=== PATIENT | male | born 1970 | race Caucasian/White ===

== ENCOUNTER 2020-04-05 06:25 | Emergency (ER) | payer MEDICAID ==
[~2020-04-05] VITALS: Ht 180.3 cm; Wt 151.0 kg
--- NOTE | 2020-04-05 06:31 | NUR ---
Patient to ER bed 6 to gown for evaluation. Side rails up.
[2020-04-05 06:32] VITALS: BP_SYST 106
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
--- NOTE | 2020-04-05 06:40 | NUR ---
ER Dr. Barcenas at bedside examining patient.
[2020-04-05] MEDS ORDERED: NACL 0.9% 1,000 ML IV ONE (06:44)
--- NOTE | 2020-04-05 06:59 | NUR ---
# 20 gauge angiocath placed to right hand. Use of asceptic technique. Opsite placed over site. Blood return noted. Blood for lab drawn from site. Flushed with 10 cc of normal saline. No evidence of infiltration noted. Patient tolerated well.
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
--- NOTE | 2020-04-05 07:18 | NUR ---
Patient Awake and cooperative with Eryn HUGHES for urine catheter placement. procedure unsuccessful, urine not ubtained. PT states he will provide urine via urinal.
--- NOTE | 2020-04-05 07:19 | NUR ---
REPORT GIVEN TO ELLEN KIRKLAND FOR CONTINUATION OF CARE.
--- NOTE | 2020-04-05 07:20 | NUR ---
RADIOLOGY STAFF, MIRANDA & DARREN AT BEDSIDE, MIRANDA STATES IT IS UNSAFE TO TAKE PT TO CT.
--- NOTE | 2020-04-05 07:38 | NUR ---
SPOKE WITH DARREN IN RADIOLOGY, REFUSING TO TAKE PT TO RADIOLOGY. DR ORONA AWARE
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
--- NOTE | 2020-04-05 07:56 | NUR ---
PT to radiology with staff via [facility].
[2020-04-05 08:02] LABS: BASOPHILS % (AUTO) 0.5 % (0.0-2.0); EOSINOPHILS # (AUTO) 0.1 K/uL (0.0-0.4); HEMATOCRIT 35.2 % (36-54); HEMOGLOBIN 11.9 g/dL (14.0-18.0); LYMPHOCYTES # (AUTO) 1.4 K/uL (1.0-5.5); LYMPHOCYTES % (AUTO) 17.9 % (20.5-51.5); MEAN CORPUSCULAR HEMOGLOBIN 30 pg (27-31); MEAN CORPUSCULAR HGB CONC 34 % (32-36); MEAN CORPUSCULAR VOLUME 88 fL (79.0-98.0); MONOCYTES # (AUTO) 0.6 K/uL (0.0-1.0); MONOCYTES % (AUTO) 7.6 % (1.7-9.3); NEUTROPHILS # (AUTO) 5.8 K/uL (1.8-7.7); PLATELET COUNT (AUTO) 256 K/uL (130-430); RED BLOOD CELL COUNT(AUTO) 4.02 MIL/uL (4.2-6.2); RED CELL DISTRIBUTION WIDTH 16.4 % (9.0-15.0)
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
[2020-04-05 08:18] LABS: CALCIUM 7.4 mg/dL (8.4-11.0); CREATININE 0.62 mg/dL (0.55-1.30); POTASSIUM 3.7 mmol/L (3.5-5.1)
[2020-04-05 08:22] LABS: INR 1.1 (0.80-1.20); PROTHROMBIN TIME 11.4 SECS (9.5-12.5)
[2020-04-05 08:24] LABS: TOTAL BILIRUBIN 0.5 mg/dL (0.0-1.0)
[2020-04-05] MEDS ORDERED: cefTRIAXone 1 GM VIAL IM ONE (08:30)
[2020-04-05] MEDS ORDERED: DIPH-TET-PERTUS Vaccine 0.5 ML VIAL (ADACEL) I.M. ONE (08:30)
[2020-04-05] MEDS ORDERED: LIDOCAINE 1% 10 MG/ML, 20 ML MDV INJ ONE (08:45)
[2020-04-05] MEDS ORDERED: cefTRIAXone 1 GM VIAL ONE (09:36)
[2020-04-05 09:37] LABS: BILIRUBIN,URINE NEGATIVE (NEGATIVE); BLOOD, URINE 1+ (NEGATIVE); CLARITY/URINE CLEAR (CLEAR); COLOR,URINE YELLOW (YELLOW); GLUCOSE,URINE NEGATIVE (NEGATIVE); KETONES,URINE 1+ (NEGATIVE); LEUKOCYTE ESTERASE ,URINE NEGATIVE (NEGATIVE); NITRITE, URINE NEGATIVE (NEGATIVE); PH,URINE 5.5 (5.0-8.0); PROTEIN URINE NEGATIVE (NEGATIVE); UROBILINOGEN,URINE 0.2 (0.2-1.0)
[2020-04-05] MEDS ORDERED: DIVA250T PO (09:38)
[2020-04-05] MEDS ORDERED: APIX5TAB PO (09:38)
[2020-04-05] MEDS ORDERED: VENL37.55 PO (09:38)
[2020-04-05] MEDS ORDERED: LIP10 PO (09:38)
[2020-04-05] MEDS ORDERED: LISI10TA5 PO (09:38)
[2020-04-05] MEDS ORDERED: ARIP5TAB10 PO (09:38)
[2020-04-05] MEDS ORDERED: METO25TA3 PO (09:38)
[2020-04-05 09:52] LABS: BARBITURATE, URINE NEGATIVE (NEG <=200); BENZODIAZEPINE, URINE NEGATIVE (NEG <=150); CANNABINOID, URINE NEGATIVE (NEG <=50); COCAINE, URINE NEGATIVE (NEG <=150); METHAMPHETAMINES SCREEN,URINE POSITIVE (NEG <=500); OPIATE, URINE NEGATIVE (NEG <=100); PHENCYCLIDINE SCREEN,URINE NEGATIVE (NEG <=25); UR TRICYCLIC ANTIDEPRESSANTS NEGATIVE (NEG <=300); URINE AMPHETAMINE POSITIVE (NEG <=500); URINE METHADONE NEGATIVE (NEG <=200); URINE OXYCODONE SCREEN NEGATIVE (NEG <=100); URINE PROPOXYPHENE SCREEN NEGATIVE (NEG <=300)
[2020-04-05 10:15] LABS: BACTERIA,URINE FEW /HPF (None Seen); MUCUS,URINE 1+ /LPF (None Seen)
--- NOTE | 2020-04-05 10:45 | NUR ---
Patient given written and verbal discharge instructions and verbalizes understanding. ER MD discussed with patient the results and treatment provided. Patient in stable condition. ID arm band removed. IV catheter removed intact and dressing applied, no active bleeding. Rx of CLINDAMYCIN given. Patient educated on pain management and to follow up with PMD. Pain Scale 2/10. Opportunity for questions provided and answered. Medication side effect fact sheet provided.
[2020-04-05 10:58] VITALS: BP_SYST 121
== END 2020-04-05 10:45 | disposition home or self-care (01) ==
LOC: SED 06:25
DX: S02.2XXA Fracture of nasal bones, initial encounter for closed fracture (principal); F10.129 Alcohol abuse with intoxication, unspecified; E11.9 Type 2 diabetes mellitus without complications; I48.91 Unspecified atrial fibrillation; Z79.899 Other long term (current) drug therapy; Y04.2XXA Assault by strike against or bumped into by another person, initial encounter; Y93.89 Activity, other specified; Y92.89 Other specified places as the place of occurrence of the external cause; Y99.8 Other external cause status
CPT/HCPCS: 12013; 36415; 70450; 70486; 80053; 80307; 81000; 84484; 85025; 85610; 85730; 87086; 90471; 90715; 93005; 96361; 96365; 99285; G0482; J0696; J2001

== ENCOUNTER 2020-04-16 03:11 | Emergency (ER) | payer MEDICAID, SELFPAY ==
[~2020-04-16] VITALS: Ht 180.3 cm; Wt 154.2 kg
[~2020-04-16 03:11] MED LIST: APIX5TAB PO; ARIP5TAB10 PO; DIVA250T PO; LIP10 PO; LISI10TA5 PO; METO25TA3 PO; VENL37.55 PO
[2020-04-16 03:15] VITALS: BP_SYST 100
[2020-04-16] MEDS ORDERED: NACL 0.9% 1,000 ML IV ONE (03:15)
[2020-04-16] MEDS ORDERED: ASPIRIN 325 MG TABLET PO ONE (03:15)
--- NOTE | 2020-04-16 03:15 | NUR ---
# 20 gauge angiocath placed to RAC. Use of asceptic technique. Opsite placed over site. Blood return noted. Blood for lab drawn from site. Flushed with 10 cc of normal saline. No evidence of infiltration noted. Patient tolerated well.
--- NOTE | 2020-04-16 03:15 | NUR ---
# 18 gauge angiocath placed to LEFT WRIST PLACED BY SQUAD [address]. Flushed with 10 cc of normal saline. No evidence of infiltration noted. Patient tolerated well.
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
--- NOTE | 2020-04-16 03:17 | NUR ---
ER Dr. Dunaway at bedside examining patient.
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
[2020-04-16] MEDS ORDERED: ONDANSETRON HCL 4 MG/2 ML VIAL IVP ONE (03:30)
--- NOTE | 2020-04-16 03:30 | NUR ---
ASPIRIN 325MG PO NOT GIVEN AT THIS TIME. PT ASLEEP AND UNABLE TO SWALLOW PILLS AT THIS TIME. MD AWARE.
[2020-04-16 03:33] LABS: BASOPHILS # (AUTO) 0.1 K/uL (0.0-0.2); BASOPHILS % (AUTO) 0.8 % (0.0-2.0); EOSINOPHILS % (AUTO) 0.6 % (0.0-4.0); HEMATOCRIT 35.3 % (36-54); HEMOGLOBIN 11.9 g/dL (14.0-18.0); LYMPHOCYTES # (AUTO) 2.2 K/uL (1.0-5.5); LYMPHOCYTES % (AUTO) 28.3 % (20.5-51.5); MEAN CORPUSCULAR HEMOGLOBIN 30 pg (27-31); MEAN CORPUSCULAR HGB CONC 34 % (32-36); MEAN CORPUSCULAR VOLUME 88 fL (79.0-98.0); MONOCYTES # (AUTO) 0.6 K/uL (0.0-1.0); MONOCYTES % (AUTO) 7.4 % (1.7-9.3); NEUTROPHILS # (AUTO) 4.9 K/uL (1.8-7.7); NEUTROPHILS % (AUTO) 62.9 % (40.0-70.0); PLATELET COUNT (AUTO) 276 K/uL (130-430); RED BLOOD CELL COUNT(AUTO) 4.02 MIL/uL (4.2-6.2); RED CELL DISTRIBUTION WIDTH 15.9 % (9.0-15.0); WHITE BLOOD COUNT (AUTO) 7.8 K/uL (4.8-10.8)
--- NOTE | 2020-04-16 03:35 | NUR ---
Called Poison Control at [phone] and spoke with FAUSTINO. Per recommendations: per Don monitor bp for 2hrs ,order ekg,give iv fluid . Dr. Dunaway notified. Will continue to monitor patient.
--- NOTE | 2020-04-16 03:35 | NUR ---
radiology at bedside for chest xray.
[2020-04-16] MEDS ORDERED: FOLIC ACID 1 MG, THIAMINE HCL 100 MG, MAGNESIUM SULFATE 1 GM, MVI 10 ML in NACL 0.9% 1,... IV ONE (03:45)
[2020-04-16 03:46] LABS: ANION GAP 11 (5-15); CALCIUM 7.5 mg/dL (8.4-11.0); CHLORIDE 102 mmol/L (98-107); CREATININE 0.71 mg/dL (0.55-1.30); GLUCOSE 135 mg/dL (70-99); SODIUM SERUM 138 mmol/L (136-145); UREA NITROGEN, BLOOD 6 mg/dL (8-21)
[2020-04-16 03:54] LABS: ALANINE AMINOTRANSFERASE 61 U/L (12-78); ALBUMIN 3.1 g/dL (3.4-4.8); ALCOHOL, BLOOD 50 mg/dL (<10); ASPARTATE AMINOTRANSFERASE 47 U/L (10-37); TOTAL BILIRUBIN 0.4 mg/dL (0.0-1.0)
[2020-04-16 03:54] LABS: BARBITURATE, URINE NEGATIVE (NEG <=200); BENZODIAZEPINE, URINE NEGATIVE (NEG <=150); CANNABINOID, URINE NEGATIVE (NEG <=50); COCAINE, URINE NEGATIVE (NEG <=150); METHAMPHETAMINES SCREEN,URINE NEGATIVE (NEG <=500); OPIATE, URINE NEGATIVE (NEG <=100); PHENCYCLIDINE SCREEN,URINE NEGATIVE (NEG <=25); UR TRICYCLIC ANTIDEPRESSANTS POSITIVE (NEG <=300); URINE AMPHETAMINE NEGATIVE (NEG <=500); URINE METHADONE NEGATIVE (NEG <=200); URINE OXYCODONE SCREEN NEGATIVE (NEG <=100); URINE PROPOXYPHENE SCREEN NEGATIVE (NEG <=300)
[2020-04-16 03:58] LABS: GFR AFRICAN AMERICAN 149 mL/min (>90); POTASSIUM 2.7 mmol/L (3.5-5.1)
[2020-04-16] MEDS ORDERED: KCL 40 mEq in D5W 1000 mL 1,000 ML IV ONE (04:00)
[2020-04-16] MEDS ORDERED: MVI 10 ML VIAL IV ONE (04:05)
[2020-04-16] MEDS ORDERED: MAGNESIUM SULFATE 1 GM/2 ML VIAL ONE (04:05)
[2020-04-16] MEDS ORDERED: THIAMINE HCL 100 MG/ML VIAL ONE (04:05)
[2020-04-16] MEDS ORDERED: FOLIC ACID 5 MG/ML VIAL IV ONE (04:05)
[2020-04-16] MEDS ORDERED: KCL 20 mEq in 0.45% NS 1000 mL 1,000 ML IV ONE (04:15)
--- NOTE | 2020-04-16 04:23 | NUR ---
PT PASSED SWALLOW EVALUATION PRIOR TO GIVING ASPIRIN 325MG PO. NO SIGNS OF CHOKING, COUGHING WHILE SWALLOWING WATER OR MEDICATION.
[2020-04-16] MEDS ORDERED: IOHEXOL 350 mgI/mL, 150 ML INFUS..BTL IV ONE (04:24)
--- NOTE | 2020-04-16 04:27 | NUR ---
PT MEDICATED PER MD ORDERS. PT TOLERATED WELL.
--- NOTE | 2020-04-16 04:30 | NUR ---
COVID SWAB COLLECTED AND SENT TO LAB.
--- NOTE | 2020-04-16 04:35 | NUR ---
Patient transported to radiology via WHEELCHAIR, accompanied by STAFF.
--- NOTE | 2020-04-16 04:48 | NUR ---
PATIENT RETURNED FROM RADIOLOGY, PLACED ON WAREHOUSE FORKLIFT OPERATOR.
--- NOTE | 2020-04-16 05:48 | NUR ---
pt sleeping comfortably in bed, vital sign stables, no signs of acute distress noted. even and unlabored breathing, snoring noted.
--- NOTE | 2020-04-16 06:14 | NUR ---
per md order, discontinue all fluids & reassess blood pressure in 15 mins. current BP 124/73, HR 93.
[2020-04-16] MEDS ORDERED: PANTOPRAZOLE SODIUM 40 MG/VIAL (PROTONIX) IVP ONE (06:30)
--- NOTE | 2020-04-16 06:45 | NUR ---
called pts daughter Navi to come pick patient up from ER. of daughter will be arriving soon.
--- NOTE | 2020-04-16 07:05 | NUR ---
Assumed care of patient, report received from ELLEN Cerna. Pt currently sleeping, will continue to monitor.
[2020-04-16 07:21] VITALS: BP_SYST 136
--- NOTE | 2020-04-16 07:21 | NUR ---
Patient given written and verbal discharge instructions and verbalizes understanding. ER MD discussed with patient the results and treatment provided. Patient in stable condition. ID arm band removed. IV catheter removed intact and dressing applied, no active bleeding. Rx of Potassium given. Patient educated on pain management and to follow up with PMD. Pain Scale 0. Opportunity for questions provided and answered. Medication side effect fact sheet provided.
== END 2020-04-16 07:21 | disposition home or self-care (01) ==
LOC: EDBD 03:11 → SED 03:11
DX: E87.6 Hypokalemia (principal); R07.89 Other chest pain; I10 Essential (primary) hypertension; F10.229 Alcohol dependence with intoxication, unspecified; Z79.899 Other long term (current) drug therapy; Z20.828 Contact with and (suspected) exposure to other viral communicable diseases
CPT/HCPCS: 36415; 71045; 71275; 80053; 80307; 83880; 84484; 85025; 85379; 87426; 93005; 96365; 96366; 96368; 96375; 99285; G0482; J2405; J3411; J3475; J3490; Q9967; J3480